=== PATIENT | female | born 1995 | race Caucasian/White ===

== ENCOUNTER 2020-07-25 14:13 | Emergency (ER) | payer MEDICAID ==
[~2020-07-25] VITALS: Ht 162.6 cm; Wt 90.7 kg
[2020-07-25] MEDS ORDERED: TRAZODONE HCL100 MG PO (15:50)
[2020-07-25] MEDS ORDERED: CITALOPRAM HBR40 MG PO (15:51)
== END 2020-07-25 19:54 | disposition home or self-care (01) ==
LOC: ED 14:13
DX: S60.862A Insect bite (nonvenomous) of left wrist, initial encounter (principal); W57.XXXA Bitten or stung by nonvenomous insect and other nonvenomous arthropods, initial encounter; F17.200 Nicotine dependence, unspecified, uncomplicated
CPT/HCPCS: 99283

== ENCOUNTER 2021-03-28 00:03 | Inpatient (IN) | payer OTHER ==
[~2021-03-28] VITALS: Ht 162.6 cm; Wt 83.9 kg
[~2021-03-28 00:03] MED LIST: CITALOPRAM HBR40 MG PO; TRAZODONE HCL100 MG PO
[2021-03-28] MEDS ORDERED: PRENATAL VITAM1 EAC6 PO (02:46)
[2021-03-28] MEDS ORDERED: SERTRALINE HCL100 MG PO (02:47)
--- NOTE | 2021-03-28 09:27 | PR ---
[facility] [address] [facility] [place], [place] [address] Signed Progress Notes IP Datetime Report Generated by CPN: 03/28/2021 09:27 PROGRESS NOTES: [id number] Impression: Normal Progression of Labor Procedures: Artificial ROM; Sterile Vag Exam Plan: Continue Present Management Informed Consent Obtain: Vaginal Delivery VITAL SIGNS: [id number] Vital Signs: Reviewed; Within Normal Limits EXAM: [id number] Dilatation: 2.5 Effacement: 80 Station: -3 Contractions: Irregular MEMBRANES: [id number] ROM Note: No leaking noted at this time, pad placed. Comments: Pt seen and examined. Doing well. Rare contractions. Discussed anticipated course of labor after AROM. All questions answered. FETUS A: [id number] FHR Baseline: 140 Variability: Moderate 6-25bpm Accelerations: 15X15 Decelerations: None FHR Category: Category I Comments on Fetus A: No evidence of metabolic acidosis FETUS B: [id number] Signing Physician: Anh Hoffman DO Copies: ~ *Electronically Signed* 03/28/21926 ANH HOFFMAN DO PATIENT NAME: BERNICE CALLE PROGRESS NOTE DATE OF : [birth year] PHYSICIAN: ANH HOFFMAN DO RPT #: [id number] REPORT IS CONFIDENTIAL AND NOT TO BE RELEASED WITHOUT AUTHORIZATION
--- NOTE | 2021-03-28 13:00 | PR ---
[facility] [address] [facility] [place], [place] [address] Signed Progress Notes IP Datetime Report Generated by CPN: 03/28/2021 12:59 PROGRESS NOTES: [id number] Impression: Normal Progression of Labor Procedures: Sterile Vag Exam Plan: Continue Present Management; Anticipate Vaginal Delivery Informed Consent Obtain: Vaginal Delivery VITAL SIGNS: [id number] Vital Signs: Reviewed; Within Normal Limits EXAM: [id number] Dilatation: 4.0 Effacement: 90 Station: -2 Contractions: Irregular MEMBRANES: [id number] ROM Note: No leaking noted at this time, pad placed. Comments: Pt seen and examined. Doing well. Comfortable w/ epidural. FETUS A: [id number] FHR Baseline: 140 Variability: Moderate 6-25bpm Accelerations: 15X15 Decelerations: None FHR Category: Category I Comments on Fetus A: No evidence of metabolic acidosis FETUS B: [id number] Signing Physician: Anh Hoffman DO Copies: ~ *Electronically Signed* 03/28/21 1259 ANH HOFFMAN DO PATIENT NAME: BERNICE CALLE [facility] PROGRESS NOTE DATE OF : [birth year] PHYSICIAN: ANH HOFFMAN DO RPT #: [id number] REPORT IS CONFIDENTIAL AND NOT TO BE RELEASED WITHOUT AUTHORIZATION
--- NOTE | 2021-03-28 18:19 | PR ---
[facility] [address] [facility] [place] [place] [address] Signed Progress Notes IP Datetime Report Generated by CPN: 03/28/2021 18:19 PROGRESS NOTES: [id number] Impression: Normal Progression of Labor; Reassuring Heart Rate Procedures: Sterile Vag Exam Plan: Continue Present Management; Anticipate Vaginal Delivery Informed Consent Obtain: Vaginal Delivery VITAL SIGNS: [id number] Vital Signs: Reviewed; Within Normal Limits EXAM: [id number] Dilatation: 7.0 Effacement: 90 Station: -1 Contractions: Irregular MEMBRANES: [id number] ROM Note: No leaking noted at this time, pad placed. Comments: Pt seen and examined. Doing well. Comfortable w/ epidural. Some nausea/ vomiting. Discussed anticipated cervical change and indications for augmentation if needed. All questions answered FETUS A: [id number] FHR Baseline: 140 Variability: Moderate 6-25bpm Accelerations: 15X15 Decelerations: None FHR Category: Category I Comments on Fetus A: No evidence of metabolic acidosis FETUS B: [id number] Signing Physician: Anh Hoffman DO Copies: ~ *Electronically Signed* 03/28/21 7511 ANH HOFFMAN DO PATIENT NAME: BERNICE CALLE CAR[place] PROGRESS NOTE DATE OF : [birth year] PHYSICIAN: ANH HOFFMAN DO RPT #: [id number] REPORT IS CONFIDENTIAL AND NOT TO BE RELEASED WITHOUT AUTHORIZATION
--- NOTE | 2021-03-28 21:01 | PR ---
[facility] [address] [place], [place] [address] Signed Progress Notes IP Datetime Report Generated by CPN: 03/28/2021 21:00 PROGRESS NOTES: [id number] Impression: Normal Progression of Labor Procedures: Intrauterine Pressure Catheter; Sterile Vag Exam Plan: Continue Present Management Other Plans: Consider augmentation Informed Consent Obtain: Vaginal Delivery VITAL SIGNS: [id number] Vital Signs: Reviewed; Within Normal Limits EXAM: [id number] Dilatation: 8.0 Effacement: 90 Station: -1 Contractions: Irregular MEMBRANES: [id number] ROM Note: No leaking noted at this time, pad placed. Comments: Pt seen and examined. Doing well. Sleeping w/ contractions. Now 9/95 and low. Not feeling contractions. IUPC placed after obtaining verbal consent. Will monitor for adequacy of contractions and consider augmentation if indicated. Discussed anticipated course of remainder of labor/delivery. All questions answered. FETUS A: [id number] FHR Baseline: 140 Variability: Moderate 6-25bpm Accelerations: 15X15 Decelerations: None FHR Category: Category I Comments on Fetus A: No evidence of metabolic acidosis FETUS B: [id number] Signing Physician: Anh Aquino DO Copies: ~ *Electronically Signed* 03/28/21 ANH ISAAC DO PATIENT NAME: BERNICE CALLE [place] PROGRESS NOTE DATE OF : 97 PHYSICIAN: ANH AQUINO DO RPT #: [id number] REPORT IS CONFIDENTIAL AND NOT TO BE RELEASED WITHOUT AUTHORIZATION
--- NOTE | 2021-03-30 08:39 | PR ---
[facility] [address] [facility] [place], [place] [address] Signed PP Progress Notes Datetime Report Generated by CPN: 03/30/2021 08:39 SUBJECTIVE: [id number] Pain: Within Normal Limits Nausea/Vomiting: Present Flatus: Yes Bowel Movement: No Vital Signs: [id number] Vital Signs: Reviewed; Within Normal Limits EXAM: Met Cardiovascular: Normal Respiratory: Normal Abdomen/Uterus: Normal Lochia: Normal Vulva/Perineum: Not Done Breasts: Not Done CVA Tenderness: Normal Extremities: Normal Incision: Not Applicable Progress: Normal Exam Comments: Fundus firm U-2 nontender IMPRESSION/PLAN/PROCEDURES: [id number] Impression: Normal Progression Plan: Discharge Progress Notes: Pt seen and examined. Doing well. Ambulating, voiding, and tolerating full diet. Pain and lochia minimal. well. No fevers/chills/other concerns. Desires d/c home today. Reviewed acute blood loss anemia (asymptomatic) and iron replacement therapy. Desires Nexplanon for pp contraception. D/C instructions reviewed in detail. Signing Physician: Anh Hoffman DO Copies: ~ *Electronically Signed* 03/30/21 0839 ANH HOFFMAN DO PATIENT NAME: BERNICE CALLE CARSON PROGRESS NOTE DATE OF : 97 PHYSICIAN: ANH HOFFMAN DO RPT #: [id number] REPORT IS CONFIDENTIAL AND NOT TO BE RELEASED WITHOUT AUTHORIZATION
== END 2021-03-30 10:40 | disposition home or self-care (01) | DRG 806 ==
LOC: FBC 00:03
PROVIDERS: ADMIT Obstetrics & Gynecology; ATTEND Obstetrics & Gynecology
PROC: 10E0XZZ Delivery of Products of Conception, External Approach (ICD-10-PCS; principal; 2021-03-28)
PROC: 10907ZC Drainage of Amniotic Fluid, Therapeutic from Products of Conception, Via Natural or Artificial Opening (ICD-10-PCS; 2021-03-28)
PROC: 10H07YZ Insertion of Other Device into Products of Conception, Via Natural or Artificial Opening (ICD-10-PCS; 2021-03-28)
PROC: 00HU33Z Insertion of Infusion Device into Spinal Canal, Percutaneous Approach (ICD-10-PCS; 2021-03-28)
PROC: 3E0R3BZ Introduction of Anesthetic Agent into Spinal Canal, Percutaneous Approach (ICD-10-PCS; 2021-03-28)
PROC: 3E0R3NZ Introduction of Analgesics, Hypnotics, Sedatives into Spinal Canal, Percutaneous Approach (ICD-10-PCS; 2021-03-28)
PROC: 3E0P7VZ Introduction of Hormone into Female Reproductive, Via Natural or Artificial Opening (ICD-10-PCS; 2021-03-28)
DX: O99.324 Drug use complicating childbirth (principal); D62 Acute posthemorrhagic anemia; Z37.0 Single live birth; O71.82 Other specified trauma to perineum and vulva; O70.1 Second degree perineal laceration during delivery; Z3A.39 39 weeks gestation of pregnancy; Z20.822 Contact with and (suspected) exposure to COVID-19; Z67.41 Type O blood, Rh negative; O99.03 Anemia complicating the puerperium; F12.90 Cannabis use, unspecified, uncomplicated; Z87.891 Personal history of nicotine dependence
CPT/HCPCS: 85025; 85027; A9270; J2405; J2590; J2795; J3010; J7121

== ENCOUNTER 2022-02-18 01:12 | Emergency (ER) | payer OTHER ==
[~2022-02-18] VITALS: Ht 152.4 cm; Wt 83.9 kg
[~2022-02-18 01:12] MED LIST changes: +PRENATAL VITAM1 EAC6 PO; +SERTRALINE HCL100 MG PO
== END 2022-02-18 02:27 | disposition home or self-care (01) ==
LOC: ED 01:12
DX: F10.129 Alcohol abuse with intoxication, unspecified (principal); Z87.891 Personal history of nicotine dependence; Y90.8 Blood alcohol level of 240 mg/100 ml or more
CPT/HCPCS: 36415; 80053; 81001; 83690; 84703; 85025; 96374; 96375; 99284-25; G0480; J2405; J7121

== ENCOUNTER 2023-11-23 09:42 | Emergency (ER) | payer SELFPAY ==
[~2023-11-23] VITALS: Ht 152.4 cm; Wt 88.5 kg
[2023-11-23] MEDS ORDERED: BUPROPION XL150 MG PO (09:59)
[2023-11-23 10:20] VITALS: BP 117/91
== END 2023-11-23 10:21 | disposition home or self-care (01) ==
LOC: ED 09:42
DX: H10.9 Unspecified conjunctivitis (principal); Z88.0 Allergy status to penicillin; Z79.899 Other long term (current) drug therapy; Z87.891 Personal history of nicotine dependence
CPT/HCPCS: 99282

== ENCOUNTER 2025-03-22 08:29 | Emergency (ER) | payer OTHER ==
[~2025-03-22] VITALS: Ht 152.4 cm; Wt 77.0 kg
[~2025-03-22 08:29] MED LIST changes: +BUPROPION XL150 MG PO
[2025-03-22 11:02] VITALS: BP 119/85
== END 2025-03-22 11:03 | disposition home or self-care (01) ==
LOC: ED 08:29
DX: S86.912A Strain of unspecified muscle(s) and tendon(s) at lower leg level, left leg, initial encounter (principal); F32.A Depression, unspecified; W01.0XXA Fall on same level from slipping, tripping and stumbling without subsequent striking against object, initial encounter; Z87.891 Personal history of nicotine dependence; Z88.0 Allergy status to penicillin; Z79.899 Other long term (current) drug therapy
CPT/HCPCS: 73560; 99283

== ENCOUNTER 2025-04-19 08:18 | Emergency (ER) | payer OTHER ==
[~2025-04-19] VITALS: Ht 160 cm; Wt 77.4 kg
--- OUTSIDE RECORDS SUMMARY | 2025-04-19 08:24 | XMS ---
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 - 2 Visits in 30 Days CARE PROVIDERS -[place]- Dentist: [employer] [facility] PHONE: [phone] Corrie has no Care Guidelines for this patient. [place] VISIT COUNT (12 MO.) 2 [facility] TOTAL 2 NOTE: Visits indicate total known visits. ED/UCC VISIT TRACKING (12 MO.) 04/19/2025 08:18 [facility] TYPE: Emergency COMPLAINT: - LT KNEE PAIN 03/22/2025 08:30 [facility] TYPE: Emergency COMPLAINT: - LT LEG INJURY DIAGNOSES: - Allergy status to penicillin - Depression, unspecified - Fall on same level from slipping, tripping and stumbling without subsequent striking against object, initial encounter - Other care home (current) drug therapy - Personal history of nicotine dependence - Strain of unspecified muscle(s) and tendon(s) at lower leg level, left leg, initial encounter - Unspecified injury of left lower leg, initial encounter INPATIENT VISIT TRACKING (12 MO.) No inpatient visits to display in this time frame [email or web address]
[2025-04-19 09:15] VITALS: BP 128/94
== END 2025-04-19 09:15 | disposition home or self-care (01) ==
LOC: ED 08:18
DX: S89.92XA Unspecified injury of left lower leg, initial encounter (principal); Z87.891 Personal history of nicotine dependence; Z88.0 Allergy status to penicillin; Z79.899 Other long term (current) drug therapy; W01.0XXA Fall on same level from slipping, tripping and stumbling without subsequent striking against object, initial encounter
CPT/HCPCS: 99283